=== PATIENT | female | born 1955 | race Two or more races ===

== ENCOUNTER 2017-06-24 09:53 | Day surgery (SDC) | payer OTHER ==
[~2017-06-24] VITALS: Ht 160 cm; Wt 65.0 kg
[2017-06-24 10:54] VITALS: Ht 160 cm; Wt 65.0 kg
--- NOTE | 2017-06-24 12:18 | OPPN ---
Date/Time of Note Date/Time of Note DATE: 06/24/17 TIME: 12:17 Operative Report Preoperative Diagnosis Screening Postoperative Diagnosis Poor prep with solid stool in the cecum and scattered all over making the exam suboptimal Internal hemorrhoids Operation/Procedure Performed Colonoscopy Surgeon see signature line care team assistant None Anesthesia: moderate sedation Estimated blood loss: none Transfusion Required none Specimen None Grafts/Implants none Complications none SELENA MCRAE MD Jun 24, 2017 12:18
[2017-06-24 12:43] VITALS: BP 119/58; PULSE 59; RESP 24
[2017-06-24] MEDS ORDERED: MIDAZOLAM 1 MG/ML 2 ML INJ ONE ×2 (13:00)
[2017-06-24] MEDS ORDERED: FENTAnyl 50 MCG/ML VIAL ONE (13:00)
--- NOTE | 2017-06-24 14:30 | GILP ---
DATE OF PROCEDURE: NAME OF PROCEDURE: Colonoscopy. SURGEON: Selena Rausch MD PREOPERATIVE DIAGNOSIS: Screening colonoscopy. POSTOPERATIVE DIAGNOSES: 1. Colonoscopy all the way to the cecum. 2. Poor prep with solid stool in the cecum and scattered all over the colon making the exam very pinto boptimal. 3. Internal hemorrhoids. INDICATION FOR THE PROCEDURE: Autumn Araujo is a 61-year-old female patient who was scheduled for screening colonoscopy. The procedure and possible complications are well explained to the patient, she understood and conse nted to the procedure. DESCRIPTION OF PROCEDURE: Under the influence of fentanyl and Versed, the colonoscope was carefully introduced in the rectum and under direct vision, it was advanced all the way to the cecum. FINDINGS: The patient had a poor prep with solid stool in the cecum and scattered all over the colo n making the exam very suboptimal. No gross neoplasm was identified. The patient was noted to have internal hemorrhoids. She tolerated the procedure very well and there was no complication from the procedure. At the end of the procedures, she was awake with stable vital signs and she was discharged home to the care of her family. IMPRESSION: Please see postoperative diagnosis. PLAN: Because of the poor prep and suboptimal nature of the examination, she will need repeat colon oscopy with better preparation in 1 year. Dictated By: SELENA VILLALTA/ZORAN Conf#: [id number] DID#: [id number]
== END 2017-06-24 15:27 | disposition home or self-care (01) ==
LOC: GIL 09:53
PROVIDERS: ATTEND Internal Medicine Gastroenterology
DX: Z12.11 Encounter for screening for malignant neoplasm of colon (principal); K64.8 Other hemorrhoids
CPT/HCPCS: 45378; J2250; J3010

== ENCOUNTER 2018-06-16 08:07 | Day surgery (SDC) | END 2018-06-16 15:32 | disposition home or self-care (01) ==